=== PATIENT | female | born 1985 | race Caucasian/White ===

== ENCOUNTER 2017-01-27 11:05 | Emergency (ER) | payer SELFPAY ==
[~2017-01-27] VITALS: Ht 165.1 cm; Wt 58.0 kg
[~2017-01-27 11:05] MED LIST: IBUP800T23 PO; MMW SWISH-SPIT; PENVK500 PO
[2017-01-27 11:07] VITALS: BP 138/90; PULSE 92; RESP 20; TEMP 97.8; O2SAT 100
--- NOTE | 2017-01-27 11:21 | PD ---
Physical Exam Time Seen by Provider: 11:17 Narrative 31 YO female presents to ED with C/O of "chronic headache". Duration 1 week. Gradual onset. severity 02/22. Associated with dizziness. Patient seen at triage desk. Vital signs reviewed. Awaiting a treatment bed. Data Data Last Documented VS Vital Signs Date Time Temp Pulse Resp B/P Pulse Ox O2 Delivery O2 Flow Rate FiO2 01/27/17 11:07 97.8 92 20 138/90 100 Room Air [facility] Supervised Visit with KRZYSZTOF: Thelma Hickman Jan 27, 2017 11:21
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
[2017-01-27] MEDS ORDERED: KETOROLAC TROMETHAMINE 60 MG/2 ML (IM) VIAL IM ONE (12:30)
[2017-01-27] MEDS ORDERED: FLUT1SPR5 EACH NARE (12:35)
[2017-01-27] MEDS ORDERED: ZITHTAB PO (12:35)
== END 2017-01-27 12:52 | disposition home or self-care (01) ==
LOC: NEPD 11:05
DX: R51 Headache (principal); J01.90 Acute sinusitis, unspecified; H53.8 Other visual disturbances; F12.90 Cannabis use, unspecified, uncomplicated; F17.290 Nicotine dependence, other tobacco product, uncomplicated
CPT/HCPCS: 96372; 99284; J1885

== ENCOUNTER 2017-07-07 08:33 | Emergency (ER) | payer SELFPAY ==
[~2017-07-07] VITALS: Ht 165.1 cm; Wt 55.0 kg
[~2017-07-07 08:33] MED LIST changes: +FLUT1SPR5 EACH NARE; -IBUP800T23 PO; -MMW SWISH-SPIT; -PENVK500 PO; +ZITHTAB PO
[2017-07-07 08:34] VITALS: BP 128/82; PULSE 89; RESP 18; TEMP 98.9; O2SAT 100
[2017-07-07] MEDS ORDERED: SODIUM CHLOR 0.9% 1000 ML INJ 1,000 ML IV ONE (08:56)
--- NOTE | 2017-07-07 08:57 | PD ---
HPI Chief Complaint: Headache Time Seen by Provider: 08:56 Travel History International Travel<30 days: No Contact w/Intl Traveler<30days: No Traveled to known affect area: No History of Present Illness HPI Patient is a 32-year-old female with a history of recurrent past year, presents emergency department for recurrent headache bitemporal location Associates mild dizziness. Patient also has intermittent vision but no loss of vision no double vision no focalized weakness. Severe recently and unresponsive to medications otherwise healthy, no chance of , not associated with menstrual cycle. The patient has been told that she might have pseudotumor cerebri in the past recommend follow-up with a neurologist but she currently does not have any insurance has not been able to do so. Symptoms are moderate to severe, bitemporal, no radiation, context as above, such as signs symptoms as above. No thunderclap presentation. PFSH Past Medical History Diminished Hearing: No Migraines: Yes Tetanus Vaccination: Unknown Influenza Vaccination: No ?: Not LMP: 07/05/17 : 0 Past Surgical History Surgical History: No Previous Surgery Social History Alcohol Use: No Tobacco Use: Yes (1 PK EVERY 2-3 DAYS) Substance Use: No Allergies-Medications (Allergen,Severity, Reaction): Coded Allergies: No Known Allergies (Verified Adverse Reaction, Unknown, 07/07/17) Reported Meds & Prescriptions Reported Meds & Active Scripts Active No Active Prescriptions or Reported Medications Review of Systems Except as stated in HPI: all other systems reviewed are Neg Physical Exam Narrative GENERAL: Well-developed well-nourished no obvious distress SKIN: Focused skin assessment warm/dry. HEAD: Atraumatic. Normocephalic. EYES: Pupils equal and round. No scleral icterus. No injection or drainage. No papilledema ENT: No nasal bleeding or discharge. Mucous membranes pink and moist. NECK: Trachea midline. No JVD. No nuchal rigidity, Kernig's and Brudzinski signs negative. CARDIOVASCULAR: Regular rate and rhythm. No murmur appreciated. RESPIRATORY: No accessory muscle use. Clear to auscultation. Breath sounds equal bilaterally. GASTROINTESTINAL: Abdomen soft, non-tender, nondistended. Hepatic and splenic margins not palpable. MUSCULOSKELETAL: No obvious deformities. No clubbing. No cyanosis. No edema. NEUROLOGICAL: Awake and alert. Cranial nerves II through XII are grossly intact and nonfocal, 5 out of 5 strength in all 4 extremity's, extraocular movements intact, cerebellar testing negative. A relates even narrow based gait.. PSYCHIATRIC: Appropriate mood and affect; insight and judgment normal. Data Data Last Documented VS Vital Signs Date Time Temp Pulse Resp B/P (MAP) Pulse Ox O2 Delivery O2 Flow Rate FiO2 07/07/17 10:20 97.8 78 16 118/76 (90) 100 07/07/17 09:10 Room Air Orders Orders Ecg Monitoring (07/07/17 08:56) Iv Access Insert/Monitor (07/07/17 08:56) Oximetry (07/07/17 08:56) Sodium Chloride 0.9% Flush (Ns Flush) (07/07/17 09:00) Ketorolac Inj (Toradol Inj) (07/07/17 09:00) Diphenhydramine Inj (Benadryl Inj) (07/07/17 09:00) Metoclopramide Inj (Reglan Inj) (07/07/17 09:00) Sodium Chlor 0.9% 1000 Ml Inj (Ns 1000 M (07/07/17 08:56) Ed Discharge Order (07/07/17 09:57) MDM Medical Decision Making Medical Screen Exam Complete: No Emergency Medical Condition: No Differential Diagnosis Recurrent headache, pseudotumor cerebri unlikely, migraine headache, cluster headache. Narrative Course Patient roomed emerged permit, multiple medications were given and the patient had complete relief of her headache. She stable for discharge. Discussed need follow-up with a primary care physician or neurologist or the [facility]. Discussed return to ED criteria. Patient appears to have unconjugated headache, no red flags for serious pathology and no indication for advanced workup. Diagnosis Primary Impression: Headache Referrals: Sean Calderon MD [facility] Additional Instructions: Talk to your Dr about possible Pseudotumor Cerebri Scripts No Active Prescriptions or Reported Meds Disposition: 01 DISCHARGE HOME Condition: Stable Hernando Lizarraga MD Jul 07, 2017 08:57
[2017-07-07] MEDS ORDERED: KETOROLAC TROMETHAMINE 30 MG/ML (IVP) VIAL IVP ONE (09:00)
[2017-07-07] MEDS ORDERED: diphenhydrAMINE HCL 50 MG/ML VIAL IVP ONE (09:00)
[2017-07-07] MEDS ORDERED: METOCLOPRAMIDE HCL 10 MG/2 ML VIAL IVP ONE (09:00)
[2017-07-07] MEDS ORDERED: SODIUM CHLORIDE 0.9% FLUSH 10 ML FLUSH IVF PRN (09:00)
[2017-07-07 09:10] VITALS: RESP 18; O2SAT 100
[2017-07-07 10:12] VITALS: RESP 17
[2017-07-07 10:20] VITALS: BP 118/76; TEMP 97.8
== END 2017-07-07 10:20 | disposition home or self-care (01) ==
LOC: NEPE 08:33
DX: R51 Headache (principal); F17.200 Nicotine dependence, unspecified, uncomplicated
CPT/HCPCS: 96361; 96374; 96375; 99284; J1200; J1885; J2765; J7030

== ENCOUNTER 2017-07-11 11:41 | Emergency (ER) | payer SELFPAY ==
[2017-07-11] VITALS (7 sets, daily range): BP systolic 103–126; BP diastolic 59–71; PULSE 46–68; RESP 16–25; TEMP 97.7; O2SAT 100
[~2017-07-11] VITALS: Ht 165.1 cm; Wt 55.0 kg
--- NOTE | 2017-07-11 12:12 | PD ---
HPI Chief Complaint: Syncope/Near-Syncope Time Seen by Provider: 12:11 Travel History International Travel<30 days: No Contact w/Intl Traveler<30days: No Traveled to known affect area: No History of Present Illness HPI 32-year-old female presents to emergency department for evaluation a headache and sensation lightheaded sensation. Patient states last evening she developed a headache. She is lying in bed with her boyfriend when she became lightheaded and believes she passed out. She tells me that her boyfriend felt her "go limp in his arms." She states she did wake up to him telling her to wake up. She states today she just feels weak and tired. Continues to have a headache. Patient was recently seen and evaluated in the ER for a headache that resolved with medication. This is happened in the past and patient was admitted and was followed by neurology. She did not follow-up outpatient however. Patient denies any recent trauma. Mild nausea and vomiting. No other focal deficits or weakness. He has no other symptoms to report. [facility] Past Medical History Medical History: Denies Significant Hx Diminished Hearing: No Migraines: Yes ?: Not LMP: 07/08/17 : 0 Social History Alcohol Use: No Tobacco Use: Yes (1 PK EVERY 2-3 DAYS) Substance Use: No Allergies-Medications (Allergen,Severity, Reaction): Coded Allergies: No Known Allergies (Verified Adverse Reaction, Unknown, 07/11/17) Reported Meds & Prescriptions Reported Meds & Active Scripts Active No Active Prescriptions or Reported Medications Review of Systems Except as stated in HPI: all other systems reviewed are Neg Physical Exam Narrative GENERAL: Well-nourished female patient, in no acute distress. SKIN: Warm and dry. HEAD: Atraumatic. Normocephalic. EYES: Pupils equal and round. No scleral icterus. No injection or drainage. ENT: No nasal bleeding or discharge. Mucous membranes pink and moist. NECK: Trachea midline. No JVD. CARDIOVASCULAR: Regular rate and rhythm. RESPIRATORY: No accessory muscle use. Clear to auscultation. Breath sounds equal bilaterally. GASTROINTESTINAL: Abdomen soft, non-tender, nondistended. Hepatic and splenic margins not palpable. MUSCULOSKELETAL: Extremities without clubbing, cyanosis, or edema. No obvious deformities. NEUROLOGICAL: Awake and alert. No obvious cranial nerve deficits. Motor grossly within normal limits. Five out of 5 muscle strength in the arms and legs. Normal speech. PSYCHIATRIC: Appropriate mood and affect; insight and judgment normal. Data Data Last Documented VS Vital Signs Date Time Temp Pulse Resp B/P (MAP) Pulse Ox O2 Delivery O2 Flow Rate FiO2 07/11/17 16:27 60 18 112/63 (79) 98 07/11/17 15:00 Room Air 07/11/17 11:43 97.7 Orders Orders Orthostatic Vital Signs (07/11/17 12:12) Electrocardiogram (07/11/17 12:12) Basic Metabolic Panel (Bmp) (07/11/17 12:12) Ed Urine Pregnancytest Poc (07/11/17 12:12) Complete Blood Count With Diff (07/11/17 12:12) Urinalysis - C+S If Indicated (07/11/17 12:12) Ecg Monitoring (07/11/17 12:12) Iv Access Insert/Monitor (07/11/17 12:12) Oximetry (07/11/17 12:12) Sodium Chloride 0.9% Flush (Ns Flush) (07/11/17 12:15) Ct Brain W/O Iv Contrast(Rout) (07/11/17 ) Sodium Chlor 0.9% 1000 Ml Inj (Ns 1000 M (07/11/17 13:45) Ed Discharge Order (07/11/17 15:00) Labs Laboratory Tests Test 07/11/17 12:40 07/11/17 12:50 White Blood Count 5.2 TH/MM3 Red Blood Count 4.30 MIL/MM3 Hemoglobin 13.5 GM/DL Hematocrit 39.6 % Mean Corpuscular Volume 92.1 FL Mean Corpuscular Hemoglobin 31.3 PG Mean Corpuscular Hemoglobin Concent 34.0 % Red Cell Distribution Width 12.9 % Platelet Count 163 TH/MM3 Mean Platelet Volume 8.9 FL Neutrophils (%) (Auto) 62.5 % Lymphocytes (%) (Auto) 29.7 % Monocytes (%) (Auto) 6.5 % Eosinophils (%) (Auto) 1.0 % Basophils (%) (Auto) 0.3 % Neutrophils # (Auto) 3.2 TH/MM3 Lymphocytes # (Auto) 1.5 TH/MM3 Monocytes # (Auto) 0.3 TH/MM3 Eosinophils # (Auto) 0.1 TH/MM3 Basophils # (Auto) 0.0 TH/MM3 CBC Comment DIFF FINAL Differential Comment Blood Urea Nitrogen 5 MG/DL Creatinine 0.68 MG/DL Random Glucose 94 MG/DL Calcium Level 8.6 MG/DL Sodium Level 139 MEQ/L Potassium Level 3.9 MEQ/L Chloride Level 106 MEQ/L Carbon Dioxide Level 28.1 MEQ/L Anion Gap 5 MEQ/L Estimat Glomerular Filtration Rate 102 ML/MIN Urine Color YELLOW Urine Turbidity HAZY Urine pH 8.5 Urine Specific [place] 1.021 Urine Protein 100 mg/dL Urine Glucose (UA) NEG mg/dL Urine Ketones 10 mg/dL Urine Occult Blood NEG Urine Nitrite NEG Urine Bilirubin NEG Urine Urobilinogen LESS THAN 2.0 MG/DL Urine Leukocyte Esterase NEG Urine RBC 3 /hpf Urine WBC 7 /hpf Urine Squamous Epithelial Cells 4 /hpf Urine Amorphous Sediment OCC Urine Bacteria RARE /hpf Urine Mucus MANY /lpf Microscopic Urinalysis Comment CULT NOT INDICATED MDM Medical Decision Making Medical Screen Exam Complete: Yes Emergency Medical Condition: Yes Medical Record Reviewed: Yes Differential Diagnosis Dehydration versus electrode abnormality versus arrhythmia versus sinus headache versus migraine headache Narrative Course 32-year-old female presents emergency room for evaluation. Patient appears without distress. Neuro exam is nonfocal. Laboratory Tests Test 07/11/17 12:40 07/11/17 12:50 White Blood Count 5.2 TH/MM3 Red Blood Count 4.30 MIL/MM3 Hemoglobin 13.5 GM/DL Hematocrit 39.6 % Mean Corpuscular Volume 92.1 FL Mean Corpuscular Hemoglobin 31.3 PG Mean Corpuscular Hemoglobin Concent 34.0 % Red Cell Distribution Width 12.9 % Platelet Count 163 TH/MM3 Mean Platelet Volume 8.9 FL Neutrophils (%) (Auto) 62.5 % Lymphocytes (%) (Auto) 29.7 % Monocytes (%) (Auto) 6.5 % Eosinophils (%) (Auto) 1.0 % Basophils (%) (Auto) 0.3 % Neutrophils # (Auto) 3.2 TH/MM3 Lymphocytes # (Auto) 1.5 TH/MM3 Monocytes # (Auto) 0.3 TH/MM3 Eosinophils # (Auto) 0.1 TH/MM3 Basophils # (Auto) 0.0 TH/MM3 CBC Comment DIFF FINAL Differential Comment Blood Urea Nitrogen 5 MG/DL Creatinine 0.68 MG/DL Random Glucose 94 MG/DL Calcium Level 8.6 MG/DL Sodium Level 139 MEQ/L Potassium Level 3.9 MEQ/L Chloride Level 106 MEQ/L Carbon Dioxide Level 28.1 MEQ/L Anion Gap 5 MEQ/L Estimat Glomerular Filtration Rate 102 ML/MIN Urine Color YELLOW Urine Turbidity HAZY Urine pH 8.5 Urine Specific [place] 1.021 Urine Protein 100 mg/dL Urine Glucose (UA) NEG mg/dL Urine Ketones 10 mg/dL Urine Occult Blood NEG Urine Nitrite NEG Urine Bilirubin NEG Urine Urobilinogen LESS THAN 2.0 MG/DL Urine Leukocyte Esterase NEG Urine RBC 3 /hpf Urine WBC 7 /hpf Urine Squamous Epithelial Cells 4 /hpf Urine Amorphous Sediment OCC Urine Bacteria RARE /hpf Urine Mucus MANY /lpf Microscopic Urinalysis Comment CULT NOT INDICATED CT imaging of the brain is without acute intracranial abnormality. Patient is given IV normal saline fluid and upon reassessment and pain control, she verbalizes improvement in her symptoms. Patient is encouraged to follow-up outpatient with her primary care provider and neurology evaluation as well. She agrees to return immediately if any acute worsening symptoms. Diagnosis Primary Impression: Headache Qualified Codes: R51 - Headache Additional Impressions: Near syncope Mild dehydration Referrals: Neurologist Primary Care Physician Patient Instructions: Acute Headache (ED), General Instructions, Near Syncope ( ED) Additional Instructions: Maintain adequate oral hydration Follow-up with a primary care provider Seek neurology evaluation as outpatient MRI may be warranted if symptoms persist Return immediately to the emergency department with any acutely worsening symptoms Med/Other Pt SpecificInfo: Prescription(s) given Scripts No Active Prescriptions or Reported Meds Disposition: 01 DISCHARGE HOME Condition: Stable SnowAnat friedman NOE Jul 11, 2017 12:12
[2017-07-11] MEDS ORDERED: SODIUM CHLORIDE 0.9% FLUSH 10 ML FLUSH IVF PRN (12:15)
[2017-07-11 13:06] LABS: AUTOMATED NEUTROPHIL # 3.2 TH/MM3 (1.8-7.7); BASOPHIL % 0.3 % (0.0-2.0); EOSINOPHIL # 0.1 TH/MM3 (0-0.4); HEMATOCRIT 39.6 % (35.0-46.0); HEMO FLAGS DIFF FINAL; LYMPH % 29.7 % (9.0-44.0); LYMPHOCYTE # 1.5 TH/MM3 (1.0-4.8); MEAN CELL VOLUME 92.1 FL (80.0-100.0); MEAN CORPUSCULAR HEMOGLOBIN 31.3 PG (27.0-34.0); MONO % 6.5 % (0.0-8.0); NEUT % 62.5 % (16.0-70.0); PLATELET COUNT 163 TH/MM3 (150-450); RED CELL DISTRIBUTION WIDTH 12.9 % (11.6-17.2); WHITE BLOOD COUNT 5.2 TH/MM3 (4.0-11.0)
[2017-07-11 13:11] LABS: BACTERIA, URINE RARE /hpf; BLOOD, URINE NEG (NEG); COMMENT (UR) CULT NOT INDICATED; CULTURE IF INDICATED CULT NOT INDICATED; GLUCOSE,URINE NEG (NEG); KETONE, URINE 10 mg/dL (NEG); MUCUS URINE MANY /lpf (OCC); NITRITE,URINE NEG (NEG); PH, URINE 8.5 (5.0-8.5); SQUAMOUS EPITHELIAL CELL URINE 4 /hpf (0-5); URINE COLOR YELLOW (YELLW/STRAW)
[2017-07-11 13:26] LABS: BICARBONATE 28.1 MEQ/L (21.0-32.0); POTASSIUM 3.9 MEQ/L (3.5-5.1)
[2017-07-11] MEDS ORDERED: SODIUM CHLOR 0.9% 1000 ML INJ 1,000 ML IV ONE (13:45)
--- NOTE | 2017-07-11 14:48 | RADRPT ---
EXAM DATE/TIME: 07/11/2017 13:43 [facility] COMPARISON: No previous studies available for comparison. INDICATIONS : Cephalgia and dizziness for one week. RADIATION DOSE: 32.66 CTDIvol (mGy) MEDICAL HISTORY : None SURGICAL HISTORY : None. ENCOUNTER: Initial ACUITY: 1 day PAIN SCALE: 6/10 LOCATION: Bilateral head TECHNIQUE: Multiple contiguous axial images were obtained of the head. Using automated exposure control and adj ustment of the mA and/or kV according to patient size, radiation dose was kept as low as reasonably a chievable to obtain optimal diagnostic quality images. DICOM format image data is available electro nically for review and comparison. FINDINGS: CEREBRUM: The ventricles are normal for age. No evidence of midline shift, mass lesion, hemorrhage or acute in farction. No extra-axial fluid collections are seen. POSTERIOR FOSSA: The cerebellum and brainstem are intact. The 4th ventricle is midline. The cerebellopontine angle i s unremarkable. EXTRACRANIAL: The visualized portion of the orbits is intact. SKULL: The calvaria is intact. No evidence of skull fracture. CONCLUSION: Negative noncontrast CT brain. Otilio Shine MD on July 11, 2017 at 14:46 Board Certified Radiologist. This report was verified electronically.
--- NOTE | 2017-07-11 21:12 | EKG ---
Date Performed: 07/11/2017 Time Performed: 12:47:20 PTAGE: 32 years EKG: SINUS BRADYCARDIA BORDERLINE ECG PREVIOUS TRACING : 10/10/2002 12.40 No significant change from previous tracing noted. DOCTOR: Parmjit Watt Interpretating Date/Time 07/11/2017 21:10:51
== END 2017-07-11 16:29 | disposition home or self-care (01) ==
LOC: NEPE 11:41
DX: E86.0 Dehydration (principal)
CPT/HCPCS: 70450; 80048; 81001; 84703; 85025; 93005; 96360; 99285; J7030